=== PATIENT | male | born 1955 | race Caucasian/White ===

== ENCOUNTER 2022-12-07 06:57 | Emergency (ER) | payer MEDICARE, OTHER, SELFPAY ==
[2022-12-07 06:58] VITALS: BP 170/78; PULSE 51; RESP 18; TEMP 36.6; O2SAT 100; BMI 24.7
--- NOTE | 2022-12-07 07:29 | ED.VIS.BACK ---
HPI History of Present Illness Chief Complaint: Back Informant: patient Narrative Narrative: Patient presents with soreness to his right back after a fall. Yesterday the patient was getting out of his truck, he stepped on the ground that was sloped away. His foot slipped. He fell and hit the back of his right chest against the running board of his truck. No loss of consciousness. He is on 2 blood pressure meds but no blood thinners. He is not short of breath. No numbness tingling or weakness. He actually hurt the right side of his chest not his back. It is the posterior right side though. Never hit his head. Arms and legs do not hurt nor did they have numbness tingling. No bowel or bladder dysfunction. No darkening or red urine. His states they actually did look for that and have not noticed any change. [facility] Medical History Kidney disease Home Medications carvedilol 12.5 mg tablet 12.5 mg PO BID 12/07/22 [History Last Taken Unknown] lisinopril 10 mg tablet 10 mg PO DAILY 12/07/22 [History Last Taken Unknown] tramadol 50 mg tablet 50 mg PO Q6H PRN pain #12 tabs 12/07/22 [Rx Last Taken Unknown] Allergy/AdvReac Type Severity Reaction Status Date / Time No Known Allergies Allergy Verified 12/07/22 06:57 Social History Smoking Status: Never smoker ROS ROS ED ROS Narrative A complete review of systems was performed and is negative except as documented in the history of present illness. Some specific details below. Constitutional: No recent fevers or chills. Malaise. Other than his right posterior chest he feels well. EYE: No visual complaints. ENT: No difficulty swallowing. No swelling. No pain. No reflux symptoms. CV: See history of present illness. Anterior pain. No palpitations. No syncope or near syncope. His fall was mechanical. Respiratory: See history of present illness. Hurts in the right posterior chest, he is not short of breath. GI: No abdominal pain. No nausea vomiting diarrhea. No blood in stool. Double eating drinking or moving bowels. : No frequency dysuria or hematuria. Musculoskeletal: See history of present illness. Skin: No rash. Nondiaphoretic. Neuro: No weakness or numbness. Endocrine: No polyuria or polydipsia. EXAM Physical Exam Narrative Exam Narrative: CONSTITUTIONAL: Patient is nontoxic in appearance. The patient looks comfortable. Work of breathing looks normal I walk into the room. HEENT: No notable trauma. Mucous membranes moist. No facial tenderness or facial or scalp bruising. EYES: No conjunctival injection. No proptosis. NECK:No JVD. No stridor. CARDIOVASCULAR: Mildly bradycardic rate. But he is asymptomatic, has good blood pressure, and is on carvedilol. Regular rhythm. No notable murmur. No JVD. Full tones. Pulses are normal. RESPIRATORY: No respiratory distress. Breathing is unlabored. No wheezes. No rhonchi. No rales. When I have him take a very deep breath it does hurt. But there is no subcutaneous air along the right chest wall. There may be the early development of some bruising. More a little bit of redness of the skin on the right lateral chest area at the posterior axillary line. I do not feel clicking with deep breaths or motion but this does cause discomfort for him. GASTROINTESTINAL: Not distended. Bowel sounds are normal. No tenderness. No guarding. No rebound. No palpable mass. No bruit is heard. GENITOURINARY: No tenderness over the bladder. No CVA tenderness on either side. MUSCULOSKELETAL: Atraumatic. No peripheral edema. This is normal. No tenderness or pain with motion. I also did percussion tenderness all the way down his thoracic or lumbar spine. There is no actual midline spinal tenderness at all. All his pain is clearly right posterior lateral chest wall. NEUROLOGICAL: Patient is alert and appropriate. No focal deficit noted. SKIN: No noted rashes. No diaphoresis. PSYCHIATRIC: Patient is calm. Mood is appropriate. Const Vital Signs: 12/07/22 06:58 Temperature 98 F Temperature Source Temporal Pulse Rate 51 L Respiratory Rate 18 Blood Pressure 170/78 H Blood Pressure Mean 108 Pulse Ox 100 MDM MDM MDM Narrative Medical decision making narrative: My independent interpretation of the patient's 5 view x-ray of the right rib and chest does not show obvious fracture or pneumothorax. Final reading is no acute findings in the chest or ribs. Patient will be given pain meds, incentive spirometer. We discussed reasons to return and expected course. Radiography Diagnostic Testing: Clinical Impression(s) from Imaging Studies Ribs w/Chest X-Ray 12/07/22 07:33 IMPRESSION: No acute findings in the chest or right ribs. Electronically Signed: Jesus Pelaez MD at 7:57 EDT Reading Location ID and State: [facility] / [place] , Service support , Discharge Plan Triage Chief Complaint: Back ED Provider: Humza Baez Dx/Rx/DC Orders Clinical Impression: Fall from slip, trip, or stumble, Contusion of right back wall of thorax, initial encounter Instructions: ED Rib Contusion or Minor Fracture Prescriptions: New tramadol 50 mg tablet 50 mg PO Q6H PRN (Reason: pain) Qty: 12 0RF No Action carvedilol 12.5 mg tablet 12.5 mg PO BID Rx Instructions: must administer with a meal/food lisinopril 10 mg tablet 10 mg PO DAILY Primary Care Provider: Care Physician,No Primary Referrals: Kalani Terry, DO [Med Staff - [employer]] - 3-5 Days if not improving NOT,DEFINED [Non-Staff] - Activity Restrictions/Additional Instructions: With your physician or referral as above if not better in the next 3-5 days Disposition Disposition: Home, Self Care
--- NOTE | 2022-12-07 07:33 | RAD_ITS ---
EXAM: XR RIGHT RIBS AND AP CHEST, 3 OR MORE VIEWS CLINICAL INDICATION: Trauma Trauma TECHNIQUE: Frontal and oblique views of the right ribs and frontal view of the chest. COMPARISON: No relevant prior studies available. FINDINGS: LUNGS AND PLEURAL SPACES: Unremarkable. No consolidation or edema. No pneumothorax. No effusion. HEART: Unremarkable. Cardiac silhouette not enlarged. MEDIASTINUM: Central airways and mediastinal contour are unremarkable. BONES/JOINTS: There is mild S-shaped thoracic scoliosis. No evidence of displaced rib fractures. VASCULATURE: There is atherosclerotic calcification of the aortic arch. RAD/Ribs Uni Min 3V w/PA Chest IMPRESSION: No acute findings in the chest or right ribs. Electronically Signed: Jesus Pelaez MD at 7:57 EDT Reading Location ID and State: [facility] / [place] , Service support ,
== END 2022-12-07 08:42 | disposition home or self-care (01) ==
PROVIDERS: Emergency Provider Emergency Medicine; Visit Provider Emergency Medicine
DX: S20.221A Contusion of right back wall of thorax, initial encounter (principal); W01.198A Fall on same level from slipping, tripping and stumbling with subsequent striking against other object, initial encounter; Y92.89 Other specified places as the place of occurrence of the external cause
CPT/HCPCS: 71101; 99282